=== PATIENT | female | born 1960 | race Caucasian/White ===

== ENCOUNTER 2021-05-08 09:30 | Emergency (ER) | payer OTHER, SELFPAY ==
--- NOTE | ~2021-05-08 | CT_ITS ---
EXAMINATION: CT ABDOMEN AND PELVIS WITH CONTRAST CLINICAL INFORMATION: Left lower quadrant pain COMPARISON: Previous CT scan most recent May 2019 TECHNIQUE: Multidetector volumetric images were obtained from the superior aspect of the liver through the pubic symphysis following administration 85 mL of Omnipaque 350 intravenous contrast. Sagittal and coronal reformatted images were obtained on the technologist's workstation. Oral contrast: Yes This CT examination was performed using dose optimization techniques as appropriate, variously including the following: *Automated exposure control *Adjustment of mA and/or kV according to patient size (this includes techniques or standardized protocols for targeted exams where dose is matched to indication/reason for exam; i.e. extremities or head) *Use of iterative reconstruction technique DLP: 619 mGy-cm FINDINGS: LUNG BASES: The visualized lung bases are unremarkable. LIVER, GALLBLADDER, AND BILIARY TREE: The liver is normal in size, shape, and attenuation. No focal hepatic lesion or biliary ductal dilatation is present. The gallbladder has been removed. PANCREAS: Unremarkable. SPLEEN: Unremarkable. ADRENAL GLANDS: Unremarkable. KIDNEYS AND URETERS: The kidneys are normal in size, shape, and attenuation. No hydronephrosis, hydroureter, or calculi seen. No perinephric stranding. BLADDER: Unremarkable. GASTROINTESTINAL TRACT: There is diverticulosis of the colon. There is wall thickening of the sigmoid colon and stranding of the fat suggestive of acute diverticulitis. There is evidence of constipation. No evidence of obstruction, perforation or abscess is seen. The appendix is not seen and may have been removed. The stomach is unremarkable. ABDOMINAL WALL: No significant hernia is appreciated. LYMPH NODES: Normal. VASCULAR: Unremarkable. PELVIC VISCERA: The uterus appears to have been removed. No pelvic mass is seen. OSSEOUS STRUCTURES: There is degenerative disc disease at L5-S1. CT/CT abdomen pelvis w con IMPRESSION: Sigmoid diverticulitis.
[2021-05-08 09:35] VITALS: BP 136/62; PULSE 96; RESP 16; TEMP 36.4; O2SAT 96; BMI 29.7
--- NOTE | 2021-05-08 09:55 | ED_ITS ---
HPI - Abdominal Pain General Chief Complaint: Abdominal Pain Stated Complaint: abd pain Time Seen by Provider: 05/08/21 09:53 History of Present Illness HPI narrative: Patient is 60 years old presents today with having abdominal pain. The abdominal pain is over the left lower quadrant. Been ongoing about 2 days. Associated with positive nausea no vomiting. No coughing or congestion or upper respiratory symptoms. Patient from home. No focal weakness. No chest pain. Patient from home. Previous history diverticulitis in the past. Patient on antibiotics. Related Data Previous Rx's Medication Instructions Recorded amoxicillin 875 mg-potassium 1 tab PO BID #20 tab 05/08/21 clavulanate 125 mg tablet (Augmentin) ibuprofen 400 mg tablet 400 mg PO Q6H PRN #20 tab 05/08/21 ondansetron 4 mg disintegrating 4 mg PO TID PRN 5 Days #10 tab 05/08/21 tablet Allergies Allergy/AdvReac Type Severity Reaction Status Date / Time No Known Allergies Allergy Verified 05/08/21 09:32 [No Known Allergies*] Review of Systems Review of Systems No fever chills positive abdominal pain Positive nausea All systems reviewed otherwise negative Yes all other systems are reviewed and are negative Physical Exam Vital Signs: Vital Signs: Last Vital Signs Temp 97.5 F 05/08/21 09:35 Pulse 96 05/08/21 09:35 Resp 16 05/08/21 09:35 BP 136/62 05/08/21 09:35 Pulse Ox 96 05/08/21 09:35 Body Mass Index 29.7 Appearance: Alert. Oriented X3. No acute distress. Eyes: Pupils equal, round and reactive to light. ENT: Pharynx normal. Neck: Normal inspection. Neck supple. No lymph nodes noted. No crepitus CVS: Normal heart rate and rhythm. Pulses normal. Normal S1 and S2 Respiratory: No respiratory distress. Breath sounds normal. No Wheezing. No rales Abdomen: Positive left lower quadrant tenderness no rebound guarding No rigidi ty. No distention. good BS x4 Skin: Skin warm and dry. Normal skin color. Normal skin turgor. Extremities: No lower extremity edema. Neurovascular intact to all extremities. No Lacerations. No Rash Neuro: Oriented X 3. No motor deficit. No sensory deficit. Moving all extermities. No slurred speech MDM - Abdominal Pain MDM Narrative Medical decision making narrative: CT positive for diverticulitis. There is no abscess no perforation. Will start patient on Rocephin and Flagyl. Will discha rge patient home on Augmentin. Patient is well appearing. In no distress. No kidney stone noted. Lab Data Attestation: I reviewed the patient's lab results. Result diagrams: 05/08/21 10:05/08/21 10:09 Labs: Lab Results 05/08/21 05/08/21 Range/Units 10: 10:09 WBC 11.6 H (4.8-10.8) X10*3/uL RBC 4.48 (4.20-5.50) X10*6/uL Hgb 12.8 (12.0-16.0) g/dl Hct 39.5 (37-47) % MCV 88.2 (80-98) fL MCH 28.6 (27.0-33.0) pg MCHC 32.4 (31.0-35.0) g/dl RDW 13.4 (11.0-16.0) % Plt Count 233 (160-400) X10*3/uL MPV 10.4 (9.4-12.3) fL Immature Gran % (Auto) 0.3 (0.0-0.4) % Neut % (Auto) 83.4 H (45-73) % Lymph % (Auto) 10.1 L (20-40) % [place] % (Auto) 5.7 (2-11) % Eos % (Auto) 0.3 (0-4) % Baso % (Auto) 0.2 (0-2) % Lymph # (Auto) 1.2 (1.2-4.9) X10*3/uL [place] # (Auto) 0.7 (0.1-1.2) X10*3/uL Eos # (Auto) 0.0 (0.0-0.4) X10*3/uL Baso # (Auto) 0.0 (0.0-0.2) X10*3/uL Abs Immat Gran (auto) 0.04 H (0.00-0.03) X10*3/uL Absolute Neuts (auto) 9.7 H (2.0-8.3) X10*3/uL Absolute Nucleated RBC 0.000 (0.0-0.012) X10*3/uL Nucleated RBC % (auto) 0.0 (0.0-0.2) /100WBC Sodium 138 (135-145) mmol/L Potassium 3.9 (3.3-5.1) mmol/L Chloride 105 (96-108) mmol/L Carbon Dioxide 24 (22-29) mmol/L Anion Gap 13 (12-20) BUN 12 (9-16) mg/dL Creatinine 0.93 (0.5-1.4) mg/dL Estim Creat Clear Calc 57.1 Estimated GFR > 60 Random Glucose 129 H (60-115) mg/dL Calcium 9.1 (8.4-10.2) mg/dL Total Bilirubin 0.4 (0.0-1.0) mg/dL AST 28 (5-31) U/L ALT 22 (0-31) U/L Alkaline Phosphatase 26 L (39-117) U/L Total Protein 6.2 L (6.5-8.0) g/dL Albumin 3.9 (3.5-5.0) g/dL Lipase 20 (8-78) U/L Discharge Plan Discharge Clinical Impression: Diverticulitis Patient Disposition: Home, Self-Care Instructions: Diverticulitis (ED) Prescriptions: New amoxicillin-pot clavulanate [Augmentin] 875-125 mg tablet 1 tab PO BID Qty: 20 RF: 0 ibuprofen 400 mg tablet 400 mg PO Q6H PRN (Reason: pain) Qty: 20 RF: 0 ondansetron 4 mg tablet,disintegrating 4 mg PO TID PRN (Reason: nausea and vomiting) 5 Days Qty: 10 RF: 0 Referrals: Evelyn Moreira MD [Physician] - 2 days [facility] Past Medical History Medical History (Updated 05/08/21 @ 12:08 by Nia Zavala MD) Diverticulitis Social History Social History Alcohol intake: never Patient Tobacco Use Status: Never used Tobacco Use of substances other than those prescribed or required for medical reasons: No Advance Directives: No Advance Directives Information Provided: No
[2021-05-08] MEDS: ondansetron HCL 4 MG/2 ML VIAL IVPUSH (10:18)
[2021-05-08] MEDS: HYDROmorphone HCl 0.5 MG/0.5 ML SYRINGE IVPUSH (10:19)
[2021-05-08 10:20] LABS: MANUAL DIFF FLAG NO
[2021-05-08] MEDS: 0.9 % Sodium Chloride 1,000 ML 999 ML IV (10:20)
[2021-05-08 10:21] LABS: Basophils Percent Auto 0.2 % (0-2); Eosinophils Percent Auto 0.3 % (0-4); Hematocrit 39.5 % (37-47); Hemoglobin 12.8 g/dl (12.0-16.0); Imm Gran Abs Auto 0.04 X10*3/uL (0.00-0.03); Imm Gran Pct Auto 0.3 % (0.0-0.4); Lymphocytes Absolute Auto 1.2 X10*3/uL (1.2-4.9); Lymphocytes Percent Auto 10.1 % (20-40); Mean Corpuscular HGB Conc 32.4 g/dl (31.0-35.0); Mean Corpuscular Hemoglobin 28.6 pg (27.0-33.0); Mean Corpuscular Volume 88.2 fL (80-98); Mean Platelet Volume 10.4 fL (9.4-12.3); Monocytes Absolute Auto 0.7 X10*3/uL (0.1-1.2); Monocytes Percent Auto 5.7 % (2-11); Neutrophils Absolute Auto 9.7 X10*3/uL (2.0-8.3); Neutrophils Percent Auto 83.4 % (45-73); Platelet Count 233 X10*3/uL (160-400); Red Blood Count 4.48 X10*6/uL (4.20-5.50); Red Cell Distribution Width 13.4 % (11.0-16.0); White Blood Count 11.6 X10*3/uL (4.8-10.8)
[2021-05-08 11:15] LABS: Alanine Aminotransferase 22 U/L (0-31); Albumin Level 3.9 g/dL (3.5-5.0); Alkaline Phosphatase 26 U/L (39-117); Anion Gap 13 (12-20); Aspartate Amino Transferase 28 U/L (5-31); Bilirubin Total 0.4 mg/dL (0.0-1.0); Blood Urea Nitrogen 12 mg/dL (9-16); Calcium 9.1 mg/dL (8.4-10.2); Carbon Dioxide 24 mmol/L (22-29); Chloride 105 mmol/L (96-108); Creatinine Clr Calc Pharmacy 57.1; Estimated Glomerular Filt Rate > 60; Glucose Random 129 mg/dL (60-115); Lipase 20 U/L (8-78); Potassium 3.9 mmol/L (3.3-5.1); Sodium 138 mmol/L (135-145); Total Protein 6.2 g/dL (6.5-8.0)
[2021-05-08] MEDS: iohexoL 350 MG/ML 100 ML INFUS..BTL 85 ML IV (11:44)
[2021-05-08] MEDS: cefTRIAXone sodium 1 GM in 0.9 % Sodium Chloride 50 ML IV (12:25)
[2021-05-08 12:27] VITALS: BP 103/52; PULSE 72; RESP 18; O2SAT 98
[2021-05-08] MEDS: metroNIDAZOLE 500 MG TABLET PO (12:27)
== END 2021-05-08 12:47 | disposition home or self-care (01) ==
PROVIDERS: Emergency Provider Emergency Medicine Emergency Medical Services; PCP Internal Medicine
DX: K57.32 Diverticulitis of large intestine without perforation or abscess without bleeding (principal); R10.9 Unspecified abdominal pain; Z79.899 Other long term (current) drug therapy
CPT/HCPCS: 36415; 74177; 80053; 83690; 85025; 96361; 96365; 96375; 99284; J0696; J1170; J2405; Q9967

== ENCOUNTER 2023-04-21 19:55 | Emergency (ER) | payer OTHER, SELFPAY ==
--- NOTE | ~2023-04-21 | XR_ITS ---
EXAMINATION: XR LUMBOSACRAL SPINE CLINICAL INFORMATION: Low back pain COMPARISON: Sagittal images from CT dated 05/08/2021 TECHNIQUE: Three views of the lumbosacral spine. FINDINGS: There is grade 1 anterolisthesis of L4 and L5. This may well be degenerative in nature. Sclerotic changes in the in the posterior elements at L4-L5 and L5-S1 are noted. Loss of disc height at L5-S1 greater than of the levels consistent with degenerative change. No compression injury is seen. XR/XR lumbar spine 2-3V IMPRESSION: Mild grade 1 anterolisthesis of L4 and L5 is likely due to degeneration in the posterior elements as described. Degenerative changes are otherwise noted. No acute compression injury. No fracture is seen
[2023-04-21 20:20] VITALS: BP 118/51; PULSE 77; RESP 18; TEMP 36.9; O2SAT 98; BMI 33.8
--- NOTE | 2023-04-21 20:21 | ED_ITS ---
HPI - General Adult General Chief complaint: Back Pain/Injury Stated complaint: back pain, no injury Time Seen by Provider: 04/22/23 00:57 Source: patient, family () and RN notes reviewed Mode of arrival: ambulatory Limitations: no limitations History of Present Illness HPI narrative: 62-year-old female presents for evaluation of left lower back pain. Patient reports her symptoms started 4 days ago. She states this started after ?sleeping on it the wrong way. ? Denies any trauma. Denies any radiation rib pain. Denies any numbness, tingling No bladder or bowel incontinence, no lower extremity weakness. Denies any history of similar Her pain is a 7/10 worse with ambulation Related Data Previous Rx's Medication Instructions Recorded amoxicillin 875 mg-potassium 1 tab PO BID #20 tabs 05/08/21 clavulanate 125 mg tablet (Augmentin) ibuprofen 400 mg tablet 400 mg PO Q6H PRN pain #20 tabs 05/08/21 ondansetron 4 mg disintegrating 4 mg PO TID PRN nausea and 05/08/21 tablet vomiting 5 days #10 tabs methocarbamol 500 mg tablet 500 mg PO TID PRN muscle spasm #15 04/22/23 tabs Allergies Allergy/AdvReac Type Severity Reaction Status Date / Time No Known Allergies Allergy Verified 04/21/23 20:20 [No Known Allergies*] Review of Systems Constitutional: Constitutional: Denies chills, Denies fever(s) and Denies weakness Eyes: Eyes: Denies blurry vision ENT: Denies sore throat Cardiovascular: Cardiovascular: Denies chest pain and Denies dyspnea Respiratory: Respiratory: Denies cough and Denies dyspnea Gastrointestinal: Gastrointestinal: Denies abdominal pain, Denies nausea and Denies vomiting Genitourinary: Genitourinary: Denies urinary incontinence and Denies urinary hesitancy Musculoskeletal: Musculoskeletal: Reports back pain and Denies tingling Integumentary/Breasts: Skin/Breast: Denies rash Neurologic: Denies tingling, Denies paresthesias and Denies weakness [facility], [facility] Past Medical History Medical History (Updated 04/22/23 @ 01:04 by Felix West) Diverticulitis Social History Social History Alcohol intake: never Patient Tobacco Use Status: Never used Tobacco Advance Directives: No Advance Directives Information Provided: Yes Physical Exam ED Vital Signs: Vital Signs - 24 hr 04/21/23 20:20 Temperature 98.4 F Pulse Rate 77 Respiratory Rate 18 Blood Pressure 118/51 L Pulse Oximetry 98 Oxygen Delivery Method Room Air BMI result Body Mass Index 33.8 Const General: healthy appearing, comfortable, no acute distress, alert and awake Nutritional Appearance: well nourished Orientation/consciousness: patient oriented x3 HENMT Head: Yes normocephalic and Yes atraumatic Eyes Eyelids: Yes eyelids normal Conjunctivae: conjunctivae normal Sclerae: sclerae normal Corneas: corneas normal Pupils: Equal, round and reactive pupils present EOM: EOMs intact bilaterally Neck Neck: Yes full ROM Resp Effort & Inspection: normal respiratory effort, able to speak in complete sentences and not labored GI Inspection: No distended Palpation (GI): Soft to palpation, not firm, nontender, no guarding and not rigid Back/Spine/Pelvis Other: Patient has tenderness in the left lumbar sacral region. No vertebral tenderness. No step-offs or deformities. Straight leg raise negative bilaterally Skin General skin exam: elasticity normal Neuro General: patient oriented x3 Cranial nerves: Yes Equal, round and reactive pupils present and Yes Bilaterally intact EOM present Cognition (Neuro): normal cognition Extrem Other: Moving all extremities well without any obvious deformities Course Course Course Narrative: This is an RME: Additional HPI, ROS, PE not included below will be deferred to primary provider. 62-year-old female presents with left lower back pain for the past 3-4 days worsening. Atraumatic in nature. No red flag symptoms. No fevers or chills. Has never had imaging of her back Plan xray, pain med Medications Administered Discontinued Medications Generic Name Dose Route Start Last Admin Trade Name Kartikq PRN Reason Stop Dose Admin Acetaminophen 650 mg 04/21/23 20:21 04/21/23 20:24 Acetaminophen 325 Mg Tablet PO 04/21/23 20:22 650 mg ONCE ONE Administration Medical Decision Making Medical Decision Making MDM Narrative: 62-year-old female presents for evaluation of lower back pain, atraumatic. History and exam does not have any red flags for cauda equina syndrome. She has no fever or reported IV drug abuse to suggest infectious process. Will treat as simple radiculopathy. X-ray shows mild degenerative changes. Differential Diagnosis Differential Diagnoses: The differential diagnosis associated with the presentation includes Lower back pain Sciatica Muscle strain Lumbar radiculopathy Osteoarthritis Lab Data [facility] Lab Attestation statement: I reviewed the patient's lab results. No evidence of UTI Labs: Lab Results 04/21/23 Range/Units 20:37 Urine Color Yellow Urine Appearance Clear Urine pH 7.5 (5.0-9.0) Ur Specific [place] <= 1.005 (1.005-1.025) Urine Protein Negative (Neg-Trace) mg/dL Urine Glucose (UA) Negative (Negative) mg/dL Urine Ketones Negative (Negative) mg/dL Urine Blood Negative (Negative) Urine Nitrite Negative (Negative) Ur Leukocyte Esterase Trace H (Negative) Urine RBC 0-2 (0-2) /HPF Urine WBC 0-5 (0-5) /HPF Ur Squamous Epith Cells 0-2 (0-2) /HPF Urine Bacteria None Seen (None Seen) Hyaline Casts 0-2 (0-2) /LPF Independent Interpretation I performed an independent interpretation of an: Plain X-Ray (No obvious fracture) Radiology Impression Discussion of test interpretation with radiology: I have reviewed the radiologist's reading. Radiologist Impression: Mild grade 1 anterior listhesis of L4 and L5 is likely due to degeneration in posterior elements as described Discharge Plan Discharge Clinical Impression: Lumbar radiculopathy Patient Disposition: Home, Self-Care Instructions: Acute Low Back Pain (ED) Additional Instructions: Your x-ray showed mild degenerative changes but no obvious fracture Your urine did not show any blood or signs of infection Use ibuprofen/Tylenol for pain You may use methocarbamol as needed for muscle spasms. This may make you sleepy, do not drink alcohol or drive after taking Prescriptions: New methocarbamol 500 mg tablet 500 mg PO TID PRN (Reason: muscle spasm) Qty: 15 0RF No Action amoxicillin-pot clavulanate [Augmentin] 875-125 mg tablet 1 tab PO BID Qty: 20 0RF ibuprofen 400 mg tablet 400 mg PO Q6H PRN (Reason: pain) Qty: 20 0RF ondansetron 4 mg tablet,disintegrating 4 mg PO TID PRN (Reason: nausea and vomiting) 5 Days Qty: 10 0RF
[2023-04-21] MEDS: Acetaminophen 325 MG TABLET 650 MG PO (20:24)
[2023-04-21 20:45] LABS: Appearance Urine Clear; Color Urine Yellow; Glucose Urine UA Negative (Negative); Leukocyte Esterase Urine Trace (Negative); Nitrite Urine Negative (Negative); PH 7.5 (5.0-9.0); Specific Gravity - Urine <= 1.005 (1.005-1.025); UMIC TRIGGER UACC YES; Urine Blood Negative (Negative); Urine Ketones Negative (Negative); Urine Protein Negative (Neg-Trace)
[2023-04-21 20:48] LABS: Bacteria Urine None Seen (None Seen); Hyaline Casts Urine 0-2 /LPF (0-2); RBC Urine 0-2 /HPF (0-2); Squamous Epithelial Cell Urine 0-2 /HPF (0-2); WBC Urine 0-5 /HPF (0-5)
[2023-04-22] MEDS: Lidocaine 4 % Patch ADH..PATCH 1 PATCH TRANSDERMA (01:31)
[2023-04-22] MEDS: Ketorolac Tromethamine 30 MG/ML VIAL IM (01:31)
[2023-04-22] MEDS: Cyclobenzaprine HCl 10 MG TABLET PO (01:31)
== END 2023-04-22 01:38 | disposition home or self-care (01) ==
PROVIDERS: Physician Assistant; Emergency Provider Internal Medicine; PCP Internal Medicine
DX: M54.16 Radiculopathy, lumbar region (principal); M54.50 Low back pain, unspecified
CPT/HCPCS: 72100; 81001; 96372; 99283; 99284; J1885

== ENCOUNTER 2024-07-11 21:34 | Inpatient (IN) | payer OTHER, SELFPAY ==
--- NOTE | ~2024-07-11 | CT_ITS ---
EXAMINATION: CT ABDOMEN AND PELVIS WITH CONTRAST CLINICAL INFORMATION: LIQ [sic] pain COMPARISON: CT abdomen and pelvis 05/08/2021. TECHNIQUE: Multidetector volumetric images were obtained from the superior aspect of the liver through the pubic symphysis following administration 85 mL of Omnipaque 350 intravenous contrast. Sagittal and coronal reformatted images were obtained on the technologist's workstation. Oral contrast: No This CT examination was performed using dose optimization techniques as appropriate, variously including the following: *Automated exposure control *Adjustment of mA and/or kV according to patient size (this includes techniques or standardized protocols for targeted exams where dose is matched to indication/reason for exam; i.e. extremities or head) *Use of iterative reconstruction technique DLP: 636 mGy-cm FINDINGS: LUNG BASES: The visualized lung bases are unremarkable. LIVER, GALLBLADDER, AND BILIARY TREE: The liver is normal in size, shape, and attenuation. No focal hepatic lesion or biliary ductal dilatation is present. Cholecystectomy clips noted. PANCREAS: Unremarkable. SPLEEN: Unremarkable. ADRENAL GLANDS: Unremarkable. KIDNEYS AND URETERS: Mild ectasia of the left ureter is present and may represent physiologic peristalsis of the left ureter. BLADDER: Unremarkable. GASTROINTESTINAL TRACT: Marked sigmoid diverticulosis is present. Focal reticulation of the sigmoid mesenteric fat is present in the middle segment of the sigmoid colon trace fluid is present adjacent to the sigmoid colon in this region. No free intraperitoneal gas identified. Fluid demonstrates a curvilinear configuration is suspicious for reactive fluid. Appendix is not visualized. No pericecal inflammatory changes noted. No small bowel dilatation noted. Normal appearance of the stomach and duodenum. ABDOMINAL WALL: No significant hernia is appreciated. LYMPH NODES: Normal. VASCULAR: Moderate diffuse calcific atherosclerosis PELVIC VISCERA: The uterus is absent. No adnexal lesions noted. OSSEOUS STRUCTURES: No suspicious skeletal lesions. Marked intervertebral disc space narrowing and endplate osteophytosis L5-S1. CT/CT abdomen pelvis w IV con IMPRESSION: *Acute uncomplicated diverticulitis of the middle segment of the sigmoid colon. Marked sigmoid diverticulosis is present. Mild to moderate focal inflammatory changes are present in the middle segment of the sigmoid colon and minimal adjacent trace reactive appearing free intraperitoneal fluid is noted. No free intraperitoneal gas identified. Electronically signed by: Facundo Bowens MD 07/12/2024 02:48 AM EST
[2024-07-11 21:38] VITALS: BP 112/31; BP 130/70; PULSE 91; PULSE 98; RESP 18; TEMP 36.6; O2SAT 97; O2SAT 98; BMI 28.5
[2024-07-11 22:04] LABS: MANUAL DIFF FLAG NO
[2024-07-11 22:05] LABS: Basophils Percent Auto 0.3 % (0-2); Eosinophils Absolute Auto 0.1 X10*3/uL (0.0-0.4); Eosinophils Percent Auto 0.4 % (0-4); Hematocrit 40.1 % (37.0-47.0); Hemoglobin 13.5 g/dl (12.0-16.0); Imm Gran Abs Auto 0.07 X10*3/uL (0.00-0.03); Imm Gran Pct Auto 0.5 % (0.0-0.4); Lymphocytes Absolute Auto 1.7 X10*3/uL (1.2-4.9); Lymphocytes Percent Auto 13.1 % (20-40); Mean Corpuscular HGB Conc 33.7 g/dl (31.0-35.0); Mean Corpuscular Hemoglobin 28.9 pg (27.0-33.0); Mean Corpuscular Volume 85.9 fL (80.0-98.0); Monocytes Absolute Auto 0.8 X10*3/uL (0.1-1.2); Neutrophils Absolute Auto 10.4 x10*3/uL (2.0-8.3); Neutrophils Percent Auto 79.7 % (45-73); Platelet Count 223 X10*3/uL (160-400); Red Blood Count 4.67 X10*6/uL (4.20-5.50); Red Cell Distribution Width 13.5 % (11.0-16.0)
[2024-07-11 22:22] LABS: Alanine Aminotransferase 36 U/L (0-31); Alkaline Phosphatase 32 U/L (39-117); Anion Gap 13 (12-20); Aspartate Amino Transferase 40 U/L (5-31); Bilirubin Total 0.5 mg/dL (0.0-1.0); Blood Urea Nitrogen 18 mg/dL (9-16); C Reactive Protein 7.58 mg/dL (< or = 0.50); Calcium 9.4 mg/dL (8.4-10.2); Carbon Dioxide 22 mmol/L (22-29); Chloride 108 mmol/L (96-108); Creatinine Clr Calc Pharmacy 70.7; Estimated Glomerular Filt Rate > 60; Glucose Random 113 mg/dL (60-115); Lipase 17 U/L (8-78); Potassium 3.9 mmol/L (3.3-5.1); Sodium 139 mmol/L (135-145); Total Protein 6.7 g/dL (6.5-8.0)
[2024-07-11 23:48] VITALS: BP 125/50; PULSE 88; RESP 18; TEMP 38.7; O2SAT 98
--- NOTE | 2024-07-11 23:53 | MHC.EDTECH ---
at this time this tech brought the pt back from the waiting room into her room in the main ED, when grabbing pt she appeared very weak and this tech offered her a wheelchair, pt denied the need then started to lose her balance and experienced a slight syncope episode, was able to hold her while this tech grabbed a wheelchair to ambulate pt. Pt changed over into hospital gown and placed on cardiac cath technician r/t syncope episode, VS taken, all wnl except temp that read 101.6 and a low BP of 115/49, checked again prior to leaving room and it read 125/50. RN notified.
[2024-07-12] VITALS (7 sets, daily range): BP systolic 92–121; BP diastolic 36–58; PULSE 64–77; RESP 12–20; TEMP 36.4–37.2; O2SAT 95–98
--- NOTE | 2024-07-12 00:13 | PC.NURSE ---
provider Ted is aware of pt temp 101.6 and bp 115/49 125/50. pt was feeling weak when getting up from the waiting room due to pain 04/09.
--- NOTE | 2024-07-12 00:20 | ED_ITS ---
HPI - General Adult General Chief complaint: Abdominal Pain Stated complaint: abd pain Time Seen by Provider: 07/11/24 23:52 Source: patient Mode of arrival: ambulatory Limitations: no limitations History of Present Illness ED Provider: Ted Heard HPI narrative: 63 yold female with pmh of diverticulitits presents to the ED LLQ pain with nausea with decrease PO intake. Patient is usually get diverticulitis flare-up every 9 months. Patient denies any genitourinary symptoms Related Data Previous Rx's ?Medication ?Instructions ?Recorded amoxicillin 875 mg-potassium 1 tab PO BID #20 tabs 05/08/21 clavulanate 125 mg tablet (Augmentin) ibuprofen 400 mg tablet 400 mg PO Q6H PRN pain #20 tabs 05/08/21 ondansetron 4 mg disintegrating 4 mg PO TID PRN nausea and 05/08/21 tablet vomiting 5 days #10 tabs methocarbamol 500 mg tablet 500 mg PO TID PRN muscle spasm #15 04/22/23 tabs Allergies Allergy/AdvReac Type Severity Reaction Status Date / Time No Known Allergies Allergy Verified 07/11/24 21:41 [No Known Allergies*] Review of Systems 2 Review of Systems: Left lower quadrant tenderness on palpation Yes all other systems are reviewed and are negative [facility] Past Medical History Medical History (Updated 07/12/24 @ 03:03 by EMY Mtz) Diverticulitis Social History Social History Alcohol intake: never Patient Tobacco Use Status: Never used Tobacco Smoked in Last 30 Days: No Use of substances other than those prescribed or required for medical reasons: No Advance Directives: No Advance Directives Information Provided: No Patient : No Physical Exam ED Vital Signs: Vital Signs - 24 hr 07/11/24 21:38 07/11/24 23:48 07/12/24 00:53 Temperature 97.9 F 101.6 F H Pulse Rate 91 88 Respiratory Rate 18 18 18 Blood Pressure 112/31 L 125/50 L Pulse Oximetry 97 98 Oxygen Delivery Method Room Air Room Air 07/12/24 01:44 07/12/24 02:00 Temperature 99.0 F 97.6 F Pulse Rate 76 64 Respiratory Rate 16 16 Blood Pressure 110/42 L 100/36 L Pulse Oximetry 97 Oxygen Delivery Method Room Air BMI result Body Mass Index 28.5 Const General: cooperative, healthy appearing, comfortable, no acute distress, well developed, alert, awake and Physically active Orientation/consciousness: patient oriented x3 HENMO Head: Yes normal to inspection, Yes No palpable skull fracture present, Yes normocephalic and Yes atraumatic Eyes General: appearance normal, both eyes and all related structures Neck Neck: Yes normal visual inspection, Yes full ROM, Yes no lymphadenopathy, Yes no meningeal signs, Yes trachea midline, No anterior neck swelling and No tender Chest Chest palpation & inspection: normal inspection of the chest and normal palpation of entire chest wall Resp Effort & Inspection: normal respiratory effort and able to speak in complete sentences Auscultation: clear to auscultation bilaterally Cardio Jugular venous distension: no JVD Heart sounds: S1 normal heart sound present and S2 normal heart sound present GI Inspection: Yes normal to inspection Palpation (GI): Soft to palpation, not firm, nontender, no guarding and not rigid General: Yes no CVA tenderness Back/Spine/Pelvis Back: no CVA tenderness and No back tenderness Skin General skin exam: no rashes or lesions noted, elasticity normal and turgor normal Neuro General: patient oriented x3, gait normal, tone normal, moves all extremities, Normal light touch and pain sensation, no meningeal signs, no focal motor deficits, CN's II-XI intact bilaterally and normal sensation to monofilament Extrem General: Yes normal to inspection, Yes full ROM and Yes capillary refill normal Psych Appearance: grossly normal, well kempt and not disheveled Medications Administered Discontinued Medications Generic Name Dose Route Start Last Admin Trade Name Freq PRN Reason Stop Dose Admin Acetaminophen 975 mg 07/12/24 00:17 07/12/24 00:53 Acetaminophen 325 Mg Tablet PO 07/12/24 00:18 975 mg ONCE ONE Administration Sodium Chloride 1,000 mls @ 999 mls/hr 07/12/24 00:17 07/12/24 00:53 Ns IV 07/12/24 01:17 999 mls/hr .Q1H1M STA Administration Iohexol 85 ml 07/12/24 00:42 07/12/24 00:42 Iohexol 350 Mg/Ml 100 Ml Infus..Btl IV 07/12/24 00:43 85 ml ONCE ONE Administration Morphine Sulfate 4 mg 07/12/24 00:27 07/12/24 00:53 Morphine Sulfate 4 Mg/Ml Cartridge IVPUSH 07/12/24 00:28 4 mg ONCE ONE Administration Protocol Medical Decision Making Medical Decision Making [facility] Narrative: 63-year-old female presents to ED for left lower quadrant tenderness with history of diverticulitis. Patient is febrile. Fluids ordered 3:01pm: Patient is accepted by hospitalist for admission for diverticulitis. Patient already received Zosyn given morphine for pain. Patient had elevated white blood cell count. Differential Diagnosis Differential Diagnoses: The differential diagnosis associated with the presentation includes (Diverticulitis) Admission/Observation Consideration of admission/observation: Escalation of care including admission/observation considered Consult Healthcare Provider Management of the patient was discussed with: Real Estate Lawyer (Dr. Leone) Lab Data [facility] Lab Attestation statement: I reviewed the patient's lab results. 07/11/24 22:00 07/11/24 22:00 Labs: Lab Results 07/11/24 07/12/24 07/12/24 Range/Units 22:00 00:06 00:23 WBC 13.0 H (4.8-10.8) X10*3/uL RBC 4.67 (4.20-5.50) X10*6/uL Hgb 13.5 (12.0-16.0) g/dl Hct 40.1 (37.0-47.0) % MCV 85.9 (80.0-98.0) fL MCH 28.9 (27.0-33.0) pg MCHC 33.7 (31.0-35.0) g/dl RDW 13.5 (11.0-16.0) % Plt Count 223 (160-400) X10*3/uL MPV 10.0 (9.4-12.3) fL Immature Gran % (Auto) 0.5 H (0.0-0.4) % Neut % (Auto) 79.7 H (45-73) % Lymph % (Auto) 13.1 L (20-40) % [place] % (Auto) 6.0 (2-11) % Eos % (Auto) 0.4 (0-4) % Baso % (Auto) 0.3 (0-2) % Lymph # (Auto) 1.7 (1.2-4.9) X10*3/uL [place] # (Auto) 0.8 (0.1-1.2) X10*3/uL Eos # (Auto) 0.1 (0.0-0.4) X10*3/uL Baso # (Auto) 0.0 (0.0-0.2) X10*3/uL Abs Immat Gran (auto) 0.07 H (0.00-0.03) X10*3/uL Absolute Neuts (auto) 10.4 H (2.0-8.3) x10*3/uL Absolute Nucleated RBC 0.000 (0.0-0.012) X10*3/uL Nucleated RBC % (auto) 0.0 (0.0-0.2) /100WBC Sodium 139 (135-145) mmol/L Potassium 3.9 (3.3-5.1) mmol/L Chloride 108 (96-108) mmol/L Carbon Dioxide 22 (22-29) mmol/L Anion Gap 13 (12-20) BUN 18 H (9-16) mg/dL Creatinine 0.83 (0.5-1.4) mg/dL Estim Creat Clear Calc 70.7 Estimated GFR > 60 Random Glucose 113 (60-115) mg/dL Lactic Acid 1.3 (0.5-2.0) mmol/L Calcium 9.4 (8.4-10.2) mg/dL Magnesium 2.0 (1.6-2.6) mg/dL Total Bilirubin 0.5 (0.0-1.0) mg/dL AST 40 H (5-31) U/L ALT 36 H (0-31) U/L Alkaline Phosphatase 32 L (39-117) U/L C-Reactive Protein 7.58 H (< or = 0.50) mg/dL Total Protein 6.7 (6.5-8.0) g/dL Albumin 4.0 (3.5-5.0) g/dL Lipase 17 (8-78) U/L Urine Color Yellow Urine Appearance Cloudy Urine pH 6.0 (5.0-9.0) Ur Specific [place] 1.020 (1.005-1.025) Urine Protein Negative (Neg-Trace) mg/dL Urine Glucose (UA) Negative (Negative) mg/dL Urine Ketones Trace (Negative) mg/dL Urine Blood Negative (Negative) Urine Nitrite Negative (Negative) Ur Leukocyte Esterase Trace H (Negative) Urine RBC 0-2 (0-2) /HPF Urine WBC 6-10 H (0-5) /HPF Ur Squamous Epith Cells 3-5 (0-2) /HPF Urine Bacteria None Seen (None Seen) Hyaline Casts 0-2 (0-2) /LPF Independent Interpretation I performed an independent interpretation of an: CT Scan Radiology Impression Discussion of test interpretation with radiology: I have reviewed the radiologist's reading. Independent Historian Clinical information obtained from an independent historian. History obtained from or confirmed by: Other (patient) External Record Review External record reviewed: Other (prior viistst) Discharge Plan Discharge Clinical Impression: Diverticulitis Patient Disposition: Admitted As Inpatient Print Language: Afghan
[2024-07-12 00:33] LABS: Appearance Urine Cloudy; Color Urine Yellow; Glucose Urine UA Negative (Negative); Leukocyte Esterase Urine Trace (Negative); Nitrite Urine Negative (Negative); UMIC TRIGGER UACC YES; Urine Blood Negative (Negative); Urine Ketones Trace mg/dL (Negative); Urine Protein Negative (Neg-Trace)
[2024-07-12 00:38] LABS: Bacteria Urine None Seen (None Seen); Hyaline Casts Urine 0-2 /LPF (0-2); RBC Urine 0-2 /HPF (0-2); UACC Culture Trigger YES
--- NOTE | 2024-07-12 00:40 | PC.NURSE ---
pt in ct at this time.
[2024-07-12] MEDS: iohexoL 350 MG/ML 100 ML INFUS..BTL 85 ML IV (00:42)
[2024-07-12 00:45] LABS: Lactic Acid 1.3 mmol/L (0.5-2.0)
[2024-07-12] MEDS: 0.9 % Sodium Chloride 1,000 ML 999 ML IV (00:53)
[2024-07-12] MEDS: Morphine Sulfate 4 MG/ML CARTRIDGE IVPUSH (00:53)
[2024-07-12] MEDS: Acetaminophen 325 MG TABLET 975 MG PO (00:53)
--- NOTE | 2024-07-12 03:44 | P.HPHOSP_ITS ---
History of Present Illness Date of Service: 07/12/24 Attending physician on admission: Lilia Cadena Chief Complaint: Abdominal pain Mireya Vásquez is a 63 years old woman with past medical history significant for prior episode of diverticulitis presents to the emergency department complaining of left lower quadrant pain that started about 4 days ago associated with nausea. She denied events of diarrhea, constipation or vomiting. She also reports some headache and subjective fever. Denied any acute cardiopulmonary or genitourinary symptoms. Last episode of diverticulitis was about 9 months ago. She has seen surgery in the past for this. Did not report alcohol abuse, tobacco smoking or illicit drug use. Past medical history is significant for cholecystectomy. In the ED she was found to have fever of 101.6. Other vital signs are stable. Blood workup was remarkable for leukocytosis of 13.0. There is no lactic acidosis. CRP is elevated at 7.58. Hemoglobin and platelets are normal. Electrolytes are normal. Creatinine 0.83 and BUN 18. Transaminases are elevated. Bilirubin, lipase and alk-phos are unremarkable. Abdomen pelvis CT scan with IV contrast showed acute uncomplicated diverticulitis of the medial segment of the sigmoid colon. ED tx: NS 1 L bolus, acetaminophen 975 mg p.o., Zosyn 3.375 g IV Review of Systems 2 Review of Systems: All 12 systems were reviewed and normal except as noted in HPI. [facility] Medical History (Updated 07/12/24 @ 03:58 by Lilia Cadena MD) Diverticulitis Social History Alcohol intake: never Patient Tobacco Use Status: Never used Tobacco Smoked in Last 30 Days: No Use of substances other than those prescribed or required for medical reasons: No Advance Directives: No Advance Directives Information Provided: No Patient : No Meds Allergies Allergy/AdvReac Type Severity Reaction Status Date / Time No Known Allergies Allergy Verified 07/11/24 21:41 [No Known Allergies*] Physical Exam 2 Vital Signs and Narrative: Vital Signs: Last Vital Signs Temp 97.6 F 07/12/24 02:00 Pulse 64 07/12/24 02:00 Resp 16 07/12/24 02:00 BP 100/36 L 07/12/24 02:00 Pulse Ox 97 07/12/24 02:00 O2 Del Method Room Air 07/12/24 02:00 BMI result Body Mass Index 28.5 Constitutional - Awake and Alert, No apparent distress. Acutely ill. Pleasant. Cooperative. HEENT - PER, EOMI. Dry oral mucosa. Heart - S1S2, RRR, No murmurs Lungs - Normal lung expansion, Normal respiratory effort, No respiratory distress, CTA bilaterally Abdomen - ND; +BS; left lower quadrant tenderness with guarding but no rebound. - No CVA tenderness Extremities - no calf tenderness bilaterally, no swelling Musculoskeletal - Normal inspection, normal ROM Skin - Warm/Dry Neurological - Alert & oriented x3. No focal weakness grossly noted. Normal speech. Psychological - Appropriate affect Results Labs 07/11/24 22:00 07/11/24 22:00 Labs: Laboratory Results - last 24 hr 07/11/24 07/12/24 07/12/24 22:00 00:06 00:23 MCV 85.9 MCH 28.9 MCHC 33.7 RDW 13.5 Plt Count 223 MPV 10.0 Immature Gran % (Auto) 0.5 H Neut % (Auto) 79.7 H Lymph % (Auto) 13.1 L [place] % (Auto) 6.0 Eos % (Auto) 0.4 Baso % (Auto) 0.3 Lymph # (Auto) 1.7 [place] # (Auto) 0.8 Eos # (Auto) 0.1 Baso # (Auto) 0.0 Abs Immat Gran (auto) 0.07 H Absolute Neuts (auto) 10.4 H Absolute Nucleated RBC 0.000 Nucleated RBC % (auto) 0.0 Anion Gap 13 Estim Creat Clear Calc 70.7 Estimated GFR > 60 Random Glucose 113 Lactic Acid 1.3 Calcium 9.4 Magnesium 2.0 Total Bilirubin 0.5 AST 40 H ALT 36 H Alkaline Phosphatase 32 L C-Reactive Protein 7.58 H Total Protein 6.7 Albumin 4.0 Lipase 17 Urine Color Yellow Urine Appearance Cloudy Urine pH 6.0 Ur Specific [place] 1.020 Urine Protein Negative Urine Glucose (UA) Negative Urine Ketones Trace Urine Blood Negative Urine Nitrite Negative Ur Leukocyte Esterase Trace H Urine RBC 0-2 Urine WBC 6-10 H Ur Squamous Epith Cells 3-5 Urine Bacteria None Seen Hyaline Casts 0-2 Assessment and Plan (1) Transaminitis: Status: Acute (2) Diverticulitis: Status: Acute Plan Mireya Vásquez is a 63 y/o woman admitted with: * Acute diverticulitis + SIRS criteria, no severe sepsis. Admit to hospitalist service. Advance diet as tolerated. Continue empiric IV antibiotic therapy with Zosyn. IV fluids. Recheck labs in the morning. Blood culture obtained -will follow results. * ?UTI. No symptoms. On Zosyn. Check urine culture. * Mild elevation of transaminases; cause unclear. Abdomen pelvis CT scan showed normal liver. Continue to monitor for now. DVT prophylaxis: Lovenox Code status: Full Patient will need hospitalization for at least 2 midnights for acute diverticulitis + SIRS criteria treatment with IV antibiotic. Quality Stroke Does the patient have a stroke diagnosis?: No VTE Prior VTE?: No VTE Risk Level:: Medical - moderate - high VTE Device Contraindication: Treatment Not Indicated VTE Drug Contraindication: N/A - Med Ordered
[2024-07-12] MEDS: Piperacillin Sodium/Tazobactam 3.375 GM in 0.9 % Sodium Chloride 50 ML IV ×4 (04:51→21:11)
[2024-07-12] MEDS: Lactated Ringers 1,000 ML 100 ML IVCONT (04:53)
[2024-07-12 06:56] LABS: MANUAL DIFF FLAG NO
[2024-07-12 06:59] LABS: Basophils Percent Auto 0.2 % (0-2); Eosinophils Percent Auto 0.3 % (0-4); Hematocrit 35.6 % (37.0-47.0); Hemoglobin 11.9 g/dl (12.0-16.0); Imm Gran Abs Auto 0.04 X10*3/uL (0.00-0.03); Imm Gran Pct Auto 0.3 % (0.0-0.4); Lymphocytes Absolute Auto 2.3 X10*3/uL (1.2-4.9); Lymphocytes Percent Auto 19.6 % (20-40); Mean Corpuscular HGB Conc 33.4 g/dl (31.0-35.0); Mean Corpuscular Hemoglobin 28.7 pg (27.0-33.0); Mean Corpuscular Volume 85.8 fL (80.0-98.0); Mean Platelet Volume 10.1 fL (9.4-12.3); Monocytes Absolute Auto 0.9 X10*3/uL (0.1-1.2); Monocytes Percent Auto 7.7 % (2-11); Neutrophils Absolute Auto 8.4 x10*3/uL (2.0-8.3); Neutrophils Percent Auto 71.9 % (45-73); Platelet Count 205 X10*3/uL (160-400); Red Blood Count 4.15 X10*6/uL (4.20-5.50); Red Cell Distribution Width 13.4 % (11.0-16.0); White Blood Count 11.6 X10*3/uL (4.8-10.8)
[2024-07-12 07:13] LABS: Albumin Level 3.4 g/dL (3.5-5.0); Anion Gap 9 (12-20); Bilirubin Total 0.6 mg/dL (0.0-1.0); Blood Urea Nitrogen 12 mg/dL (9-16); Calcium 8.5 mg/dL (8.4-10.2); Carbon Dioxide 23 mmol/L (22-29); Chloride 112 mmol/L (96-108); Creatinine Clr Calc Pharmacy 80.4; Estimated Glomerular Filt Rate > 60; Glucose Random 111 mg/dL (60-115); Potassium 3.7 mmol/L (3.3-5.1); Sodium 140 mmol/L (135-145); Total Protein 5.6 g/dL (6.5-8.0)
[2024-07-12 07:14] LABS: Alkaline Phosphatase 28 U/L (39-117); Aspartate Amino Transferase 59 U/L (5-31)
[2024-07-12 07:30] LABS: Alanine Aminotransferase 52 U/L (0-31)
[2024-07-12] MEDS: 0.9 % Sodium Chloride Flush 3 ML SYRINGE IVFLUSH ×2 (08:41→16:54)
[2024-07-12] MEDS: Enoxaparin Sodium 40 MG/0.4 ML SYRINGE SUBCUT (08:42)
--- NOTE | 2024-07-12 08:46 | PHA.MEDREC ---
Pharmacy Consult ? Medication Reconciliation Pharmacy has completed the medication reconciliation. Patient said she only takes OTC acetaminophen 500 mg and ibuprofen 200 mg as needed.
[2024-07-12] MEDS: oxyCODONE HCl Immed Release 5 MG TABLET PO ×2 (09:03→17:53)
[2024-07-12] MEDS: 0.9 % Sodium Chloride 1,000 ML 100 ML IVCONT ×2 (09:06→21:11)
--- NOTE | 2024-07-12 12:33 | MHC.CM.PN ---
Addendum entered by Kaitlyn Tinajero 07/14/24 11:57: PT WILL DC HOME TODAY WITH NO SERVICES Original Note: PT REPORTS SHE LIVES WITH HER AND IS INDEPENDENT WITH CARE SHE HAS NO DME AND NO SERVICES COPY OF HCP REQUESTED PCP: MARTINEZ KERR DCP: HOME NO SERVICES VIA PRIVATE TRANSPORT
--- NOTE | 2024-07-12 15:59 | P.PNIM_ITS ---
Subjective Subjective Date of Service: 07/12/24 Interval History: Acute diverticulitis Review of Systems abd pain somewhat improving no fevers Physical Exam 2 Vital Signs: Vital Signs: Last Vital Signs Temp 97.6 F 07/12/24 08:40 Pulse 77 07/12/24 08:40 Resp 20 07/12/24 08:40 BP 116/46 L 07/12/24 08:40 Pulse Ox 98 07/12/24 08:40 O2 Del Method Room Air 07/12/24 08:40 BMI result Body Mass Index 28.5 Appearance: Alert.? Oriented X3.? cvs: rrr, [id number] . res: clear to auscultation ,no rhonchii or wheezing abd: no rebound or guarding ,has some lower abd discomfort, bs present. ext pulses present , no cyanosis . neuro: axo3 , nonfocal. Objective Data Active Medications Acetaminophen (Acetaminophen 325 Mg Tablet) 975 mg PO Q6H PRN PRN Reason: Pain, Mild (Pain Scale 1-3), fever or headache Calcium Carbonate (Calcium Carbonate 750 Mg Tab.Chew) 750 mg PO Q4H PRN PRN Reason: Heartburn Enoxaparin Sodium (Enoxaparin Sodium 40 Mg/0.4 Ml Syringe) 40 mg SUBCUT Q24H [facility] Last Admin: 07/12/24 08:42 Dose: 40 mg Documented By: RENEE Piperacillin Sod/Tazobactam (Sod 3.375 gm/ Sodium Chloride) 50 mls @ 100 mls/hr IV Q6H [facility] Last Infusion: 07/12/24 09:12 Dose: Infused Documented By: RENEE Sodium Chloride (Ns) 1,000 mls @ 100 mls/hr IVCONT .Q10H [facility] Last Admin: 07/12/24 09:06 Dose: 100 mls/hr Documented By: RENEE Magnesium Hydroxide (Milk Of Magnesia 30 Ml Oral.Susp) 30 ml PO DAILY PRN PRN Reason: Constipation Melatonin (Melatonin 3 Mg Tablet) 6 mg PO BEDTIME PRN PRN Reason: Insomnia Oxycodone HCl (Oxycodone Hcl Immed Release 5 Mg Tablet) 5 mg PO Q6H PRN PRN Reason: Pain, Severe (Pain Scale 7-10) Last Admin: 07/12/24 09:03 Dose: 5 mg Documented By: RENEE Sodium Chloride (0.9 % Sodium Chloride Flush 3 Ml Syringe) 3 ml IVFLUSH QSHIFT [facility] Last Admin: 07/12/24 08:41 Dose: 3 ml Documented By: RENEE Labs 07/12/24 06:51 07/12/24 06:51 Labs: Laboratory Results - last 24 hr 07/11/24 07/12/24 07/12/24 22:00 00:06 00:23 MCV 85.9 MCH 28.9 MCHC 33.7 RDW 13.5 Plt Count 223 MPV 10.0 Immature Gran % (Auto) 0.5 H Neut % (Auto) 79.7 H Lymph % (Auto) 13.1 L [place] % (Auto) 6.0 Eos % (Auto) 0.4 Baso % (Auto) 0.3 Lymph # (Auto) 1.7 [place] # (Auto) 0.8 Eos # (Auto) 0.1 Baso # (Auto) 0.0 Abs Immat Gran (auto) 0.07 H Absolute Neuts (auto) 10.4 H Absolute Nucleated RBC 0.000 Nucleated RBC % (auto) 0.0 Anion Gap 13 Estim Creat Clear Calc 70.7 Estimated GFR > 60 Random Glucose 113 Lactic Acid 1.3 Calcium 9.4 Magnesium 2.0 Total Bilirubin 0.5 AST 40 H ALT 36 H Alkaline Phosphatase 32 L C-Reactive Protein 7.58 H Total Protein 6.7 Albumin 4.0 Lipase 17 Urine Color Yellow Urine Appearance Cloudy Urine pH 6.0 Ur Specific [place] 1.020 Urine Protein Negative Urine Glucose (UA) Negative Urine Ketones Trace Urine Blood Negative Urine Nitrite Negative Ur Leukocyte Esterase Trace H Urine RBC 0-2 Urine WBC 6-10 H Ur Squamous Epith Cells 3-5 Urine Bacteria None Seen Hyaline Casts 0-2 07/12/24 06:51 MCV 85.8 MCH 28.7 MCHC 33.4 RDW 13.4 Plt Count 205 MPV 10.1 Immature Gran % (Auto) 0.3 Neut % (Auto) 71.9 Lymph % (Auto) 19.6 L [place] % (Auto) 7.7 Eos % (Auto) 0.3 Baso % (Auto) 0.2 Lymph # (Auto) 2.3 [place] # (Auto) 0.9 Eos # (Auto) 0.0 Baso # (Auto) 0.0 Abs Immat Gran (auto) 0.04 H Absolute Neuts (auto) 8.4 H Absolute Nucleated RBC 0.000 Nucleated RBC % (auto) 0.0 Anion Gap 9 L Estim Creat Clear Calc 80.4 Estimated GFR > 60 Random Glucose 111 Lactic Acid Calcium 8.5 D Magnesium Total Bilirubin 0.6 AST 59 H ALT 52 H Alkaline Phosphatase 28 L C-Reactive Protein Total Protein 5.6 L Albumin 3.4 L Lipase Urine Color Urine Appearance Urine pH Ur Specific [place] Urine Protein Urine Glucose (UA) Urine Ketones Urine Blood Urine Nitrite Ur Leukocyte Esterase Urine RBC Urine WBC Ur Squamous Epith Cells Urine Bacteria Hyaline Casts Assessment and Plan (1) Diverticulitis: Status: Acute Plan 63 y/o woman admitted with: Acute diverticulitis + SIRS criteria, no severe sepsis. abd pain improving ua-seems pyuria/no bacteruria blood /urine cultures pending Advance diet as tolerated. Continue empiric IV antibiotic therapy with Zosyn. IV fluids. Recheck labs in the morning. Blood culture obtained -will follow results. ?UTI. No symptoms. On Zosyn. Check urine culture. Mild elevation of transaminases; cause unclear. Abdomen pelvis CT scan showed normal liver. Continue to monitor for now. DVT prophylaxis: Lovenox. ongoing need for hospital stay-acute diverticulitis + SIRS criteria treatment with IV antibiotic. Quality Stroke Does the patient have a stroke diagnosis?: No VTE Prior VTE?: No VTE Risk Level:: Medical - moderate - high VTE Device Contraindication: Treatment Not Indicated VTE Drug Contraindication: N/A - Med Ordered
[2024-07-12 16:53] LABS: Estimated Average Glucose 108 mg/dL; Hemoglobin A1C 108.6781 umol/L; Hemoglobin A1c % 5.4 % (<6.0); Total Hemoglobin (HGBA1C) 3061.2853 umol/L
--- NOTE | 2024-07-12 19:02 | PC.NURSE ---
pt alert and oriented x4, she endorses 4/[address] Benoit aware and one time oxy put in for pain outside of order parameters. pt tolerating clear liquid diet. Pt reports some feeling of constipation and has not had bm in 3-4 days. She declined med at this time of day but states she will take in the morning. iv fluids maintained. Pt denies other complaint.
--- NOTE | 2024-07-12 22:17 | PC.NURSE ---
admission notes: pt BIBA fro LLQ pain, decreased PO intake and nausea, hx of diverticulitis. CT: acute uncomplicated diverticulitis of the medial segment of the sigmoid colon. 20g IV RAC, NS infusing at 100mls/hr. pt A/O x4, ambulates independently. calm and cooperative with care. clear liquid diet. ADMIT: acute diverticulitis, transaminitis (cause unknown) belongings list completed. transport with IVF. no sitter
[2024-07-13] VITALS (7 sets, daily range): BP systolic 91–109; BP diastolic 44–64; PULSE 60–70; RESP 12–18; TEMP 36.6–37.1; O2SAT 93–97
[2024-07-13] MEDS: Piperacillin Sodium/Tazobactam 3.375 GM in 0.9 % Sodium Chloride 50 ML IV ×4 (04:51→20:37)
[2024-07-13] MEDS: Acetaminophen 325 MG TABLET 975 MG PO (04:55)
[2024-07-13] MEDS: oxyCODONE HCl Immed Release 5 MG TABLET PO ×3 (04:56→20:42)
[2024-07-13 08:03] LABS: Alanine Aminotransferase 136 U/L (0-31); Albumin Level 3.2 g/dL (3.5-5.0); Alkaline Phosphatase 38 U/L (39-117); Anion Gap 11 (12-20); Aspartate Amino Transferase 92 U/L (5-31); Bilirubin Total 0.6 mg/dL (0.0-1.0); Blood Urea Nitrogen 7 mg/dL (9-16); Calcium 8.2 mg/dL (8.4-10.2); Carbon Dioxide 26 mmol/L (22-29); Chloride 109 mmol/L (96-108); Creatinine Clr Calc Pharmacy 78.3; Estimated Glomerular Filt Rate > 60; Glucose Random 88 mg/dL (60-115); Sodium 142 mmol/L (135-145); Total Protein 5.4 g/dL (6.5-8.0)
[2024-07-13] MEDS: Enoxaparin Sodium 40 MG/0.4 ML SYRINGE SUBCUT (08:23)
[2024-07-13] MEDS: 0.9 % Sodium Chloride 1,000 ML 100 ML IVCONT (08:23)
[2024-07-13] MEDS: ondansetron HCL 4 MG/2 ML VIAL IVPUSH (10:31)
--- NOTE | 2024-07-13 12:58 | HO.PM.IMPN ---
Subjective Subjective Date of Service: 07/13/24 Interval History: Acute diverticulitis Review of Systems abd pain seems similar no fevers boderline bp Physical Exam Vital Signs: Vital Signs: Last Vital Signs Temp 98.4 F 07/13/24 11:54 Pulse 60 07/13/24 11:54 Resp 18 07/13/24 11:54 BP 101/52 L 07/13/24 11:54 Pulse Ox 97 07/13/24 11:54 O2 Del Method Room Air 07/13/24 11:54 BMI result Body Mass Index 28.5 Appearance: Alert.? Oriented X3.? cvs: rrr, [id number] . res: clear to auscultation ,no rhonchii or wheezing abd: no rebound or guarding ,has some lower abd discomfort, bs present. ext pulses present , no cyanosis . neuro: axo3 , nonfocal. Objective Data Active Medications Acetaminophen (Acetaminophen 325 Mg Tablet) 975 mg PO Q6H PRN PRN Reason: Pain, Mild (Pain Scale 1-3), fever or headache Last Admin: 07/13/24 04:55 Dose: 975 mg Documented By: NARGIS Calcium Carbonate (Calcium Carbonate 750 Mg Tab.Chew) 750 mg PO Q4H PRN PRN Reason: Heartburn Enoxaparin Sodium (Enoxaparin Sodium 40 Mg/0.4 Ml Syringe) 40 mg SUBCUT Q24H [facility] Last Admin: 07/13/24 08:23 Dose: 40 mg Documented By: EVITA Piperacillin Sod/Tazobactam (Sod 3.375 gm/ Sodium Chloride) 50 mls @ 100 mls/hr IV Q6H [facility] Last Infusion: 07/13/24 12:39 Dose: Infused Documented By: EVITA Sodium Chloride (Ns) 1,000 mls @ 100 mls/hr IVCONT .Q10H [facility] Last Admin: 07/13/24 08:23 Dose: 100 mls/hr Documented By: EVITA Magnesium Hydroxide (Milk Of Magnesia 30 Ml Oral.Susp) 30 ml PO DAILY PRN PRN Reason: Constipation Melatonin (Melatonin 3 Mg Tablet) 6 mg PO BEDTIME PRN PRN Reason: Insomnia Ondansetron HCl (Ondansetron Hcl 4 Mg/2 Ml Vial) 4 mg IVPUSH Q6H PRN PRN Reason: Nausea and Vomiting Last Admin: 07/13/24 10:31 Dose: 4 mg Documented By: EVITA Oxycodone HCl (Oxycodone Hcl Immed Release 5 Mg Tablet) 5 mg PO Q6H PRN PRN Reason: Pain, Severe (Pain Scale 7-10) Last Admin: 07/13/24 04:56 Dose: 5 mg Documented By: NARGIS Oxycodone HCl (Oxycodone Hcl Immed Release 5 Mg Tablet) 2.5 mg PO Q6H PRN PRN Reason: Pain, Moderate(Pain Scale 4-6) Sodium Chloride (0.9 % Sodium Chloride Flush 3 Ml Syringe) 3 ml IVFLUSH QSHIFT [facility] Last Admin: 07/13/24 08:23 Dose: Not Given Documented By: EVITA Non-Admin Reason: IV Running Labs 07/12/24 06:51 07/13/24 06:05 Labs: Laboratory Results - last 24 hr 07/12/24 07/13/24 06:51 06:05 Hold Purple Top SEE NOTE Anion Gap 11 L Estim Creat Clear Calc 78.3 Estimated GFR > 60 Random Glucose 88 Estimat Average Glucose 108 Hemoglobin A1c % 5.4 Calcium 8.2 L Total Bilirubin 0.6 AST 92 H ALT 136 H Alkaline Phosphatase 38 L Total Protein 5.4 L Albumin 3.2 L Microbiology Microbiology Results: Microbiology 07/12/24 Unknown Urine Culture - Final Urine clean catch - Clean Catch Midstream No growth. 07/12/24 00:20 Blood Culture - Preliminary Blood - Venous No growth after 24 hours. 07/12/24 00:20 Blood Culture - Preliminary Blood - Venous No growth after 24 hours. Assessment and Plan (1) Diverticulitis: Status: Acute Assessment and Plan: 63 y/o woman admitted with: Acute diverticulitis + SIRS criteria, no severe sepsis. abd pain improving ua-seems pyuria/no bacteruria blood /urine cultures neg prelimiary. plan:Advance diet as tolerated. Continue empiric IV antibiotic therapy with Zosyn. IV fluids. ?UTI. No symptoms. On Zosyn. Check urine culture. Mild elevation of transaminases; cause unclear. Abdomen pelvis CT scan showed normal liver. Continue to monitor for now. DVT prophylaxis: Lovenox. ongoing need for hospital stay-acute diverticulitis + SIRS criteria treatment with IV antibiotic. Quality Stroke Does the patient have a stroke diagnosis?: No VTE Prior VTE?: No VTE Risk Level:: Medical - moderate - high VTE Device Contraindication: Treatment Not Indicated VTE Drug Contraindication: N/A - Med Ordered
[2024-07-13 14:17] LABS: Anion Gap 10 (12-20); Blood Urea Nitrogen 8 mg/dL (9-16); Calcium 8.4 mg/dL (8.4-10.2); Carbon Dioxide 25 mmol/L (22-29); Chloride 109 mmol/L (96-108); Creatinine Clr Calc Pharmacy 67.5; Estimated Glomerular Filt Rate > 60; Glucose Random 153 mg/dL (60-115); Potassium 3.6 mmol/L (3.3-5.1); Sodium 140 mmol/L (135-145)
[2024-07-14] VITALS: BP 116/55; PULSE 65; RESP 16; TEMP 36.1; O2SAT 96
[2024-07-14] MEDS: 0.9 % Sodium Chloride Flush 3 ML SYRINGE IVFLUSH (01:07)
[2024-07-14] MEDS: 0.9 % Sodium Chloride 1,000 ML 100 ML IVCONT (01:07)
[2024-07-14 03:42] VITALS: BP 120/58; PULSE 68; RESP 16; TEMP 36.5; O2SAT 96
[2024-07-14] MEDS: Piperacillin Sodium/Tazobactam 3.375 GM in 0.9 % Sodium Chloride 50 ML IV ×2 (05:35→08:23)
[2024-07-14 07:10] VITALS: BP 129/60; PULSE 65; RESP 16; TEMP 36.3; O2SAT 96
[2024-07-14 07:12] LABS: Alanine Aminotransferase 145 U/L (0-31); Albumin Level 3.1 g/dL (3.5-5.0); Alkaline Phosphatase 41 U/L (39-117); Anion Gap 7 (12-20); Aspartate Amino Transferase 79 U/L (5-31); Bilirubin Total 0.3 mg/dL (0.0-1.0); Blood Urea Nitrogen 7 mg/dL (9-16); Calcium 8.4 mg/dL (8.4-10.2); Carbon Dioxide 27 mmol/L (22-29); Chloride 111 mmol/L (96-108); Creatinine Clr Calc Pharmacy 71.6; Estimated Glomerular Filt Rate > 60; Glucose Random 94 mg/dL (60-115); Potassium 3.8 mmol/L (3.3-5.1); Sodium 141 mmol/L (135-145); Total Protein 5.4 g/dL (6.5-8.0)
[2024-07-14] MEDS: Enoxaparin Sodium 40 MG/0.4 ML SYRINGE SUBCUT (08:23)
--- NOTE | 2024-07-14 11:12 | P.DS_ITS ---
DS: Providers Provider Date of Service: 07/14/24 Date of admission: 07/12/24 03:42 Date of discharge: 07/14/24 Primary care physician: Britney House MD Attending physician on discharge: Jose Benoit Discharging clinician: Jose Benoit DS: Diagnosis Discharge Diagnosis (1) Diverticulitis: Status: Acute DS: Summary Hospital Course Hospital Course: 63 years old woman with past medical history significant for prior episode of diverticulitis presents to the emergency department complaining of left lower quadrant pain that started about 4 days ago associated with nausea. She denied events of diarrhea, constipation or vomiting. She also reports some headache and subjective fever. Denied any acute cardiopulmonary or genitourinary symptoms. Last episode of diverticulitis was about 9 months ago. She has seen surgery in the past for this. Did not report alcohol abuse, tobacco smoking or illicit drug use. Past medical history is significant for cholecystectomy. In the ED she was found to have fever of 101.6. Other vital signs are stable. Blood workup was remarkable for leukocytosis of 13.0. There is no lactic acidosis. CRP is elevated at 7.58. Hemoglobin and platelets are normal. Electrolytes are normal. Creatinine 0.83 and BUN 18. Transaminases are elevated. Bilirubin, lipase and alk-phos are unremarkable. Abdomen pelvis CT scan with IV contrast showed acute uncomplicated diverticulitis of the medial segment of the sigmoid colon. ED tx: NS 1 L bolus, acetaminophen 975 mg p.o., Zosyn 3.375 g IV Hospital course: Patient was admitted to the hospital because of left lower quadrant pain: found to have acute diverticulitis and sirs : leucocytosis ,lactic acid normal , mild elevated lft, ct abd : Acute uncomplicated diverticulitis of the middle segment of the sigmoid colon , blood cultures sent , started on iv antibiotics ,bowel rest ,ivf . patient seems to be improved with above supportive care , will switch to po augmentin 875 mg po bid x5 days. Leukocytosis improving, no fever, blood culture negative at 48 hours, patient tolerating diet. transmanitis -? chronic , similar to yesterday, acute diverticulitis might also be contributing. no abd pain ct abd shows The liver is normal in size, shape, and attenuation. No focal hepatic lesion or biliary ductal dilatation is present. Cholecystectomy clips noted. hepatitic A,B,C screen ordered and pending -discussed with patient lft's improving , repeat Lft's outpatient and hepatitis screen outapteint with pcp. plan: complete po augmentin 875 mg po bid x5 days. patient wants to follow with her pcp to decide outpatient colonoscopy and if needed diverticular surgery, she also wants to repeat Lft's outpatient and hepatitis screen and further workup with pcp. Above management discussed with her and her family at bedside, they understand and in agreement with the above plan, time spent 40 minute. Time Attestation Total time managing care of this patient today: 40 mintues. Discharge Coordination Time (in mins): 40 min Quality: Safe Use of Opioids Does Pt have an Active Cancer Diagnosis on the Problem List?: No Quality: Stroke Does the patient have a stroke diagnosis?: No Physical Exam Vital Signs: Vital Signs: Last Vital Signs Temp 97.3 F 07/14/24 07:10 Pulse 65 07/14/24 07:10 Resp 16 07/14/24 07:10 BP 129/60 07/14/24 07:10 Pulse Ox 96 07/14/24 07:10 O2 Del Method Room Air 07/14/24 07:10 BMI result Body Mass Index 28.5 Appearance: Alert.? Oriented X3.? cvs: rrr, [id number] . res: clear to auscultation ,no rhonchii or wheezing abd: no rebound or guarding ,has some lower abd discomfort, bs present. ext pulses present , no cyanosis . neuro: axo3 , nonfocal. DS: Data Data Completed and Pending Labs on day of discharge: Laboratory Results - last 24 hr 07/13/24 07/14/24 13:44 05:50 Sodium 140 141 Potassium 3.6 3.8 Chloride 109 H 111 H Carbon Dioxide 25 27 Anion Gap 10 L 7 L BUN 8 L 7 L Creatinine 0.87 0.82 Estim Creat Clear Calc 67.5 71.6 Estimated GFR > 60 > 60 Random Glucose 153 H 94 Calcium 8.4 8.4 Total Bilirubin 0.3 AST 79 H ALT 145 H Alkaline Phosphatase 41 Total Protein 5.4 L Albumin 3.1 L Preliminary micro results at discharge 07/12/24 00:20 Blood Culture - Preliminary Blood - Venous No growth after 48 hours. 07/12/24 00:20 Blood Culture - Preliminary Blood - Venous No growth after 48 hours. Imaging Chest x-ray: Radiologist's impression: ITS Impressions Abdomen/Pelvis CT 07/12/24 00:00 IMPRESSION: *Acute uncomplicated diverticulitis of the middle segment of the sigmoid colon. Marked sigmoid diverticulosis is present. Mild to moderate focal inflammatory changes are present in the middle segment of the sigmoid colon and minimal adjacent trace reactive appearing free intraperitoneal fluid is noted. No free intraperitoneal gas identified. Electronically signed by: Facundo Bowens MD 07/12/2024 02:48 AM [facility] Discharge Plan Discharge Anticipated Discharge Date/Time: 07/14/24 10:55 Patient Disposition: Home, Self-Care Discharge Diagnosis: diverticulitis ,transaminitis Referrals: Britney House MD [Primary Care Provider] - 1 Week Discharge Medications: New amoxicillin-pot clavulanate 875-125 mg Tablet 1 tab PO Q12H Qty: 10 0RF docusate sodium [Colace] 100 mg capsule 100 mg PO DAILY Qty: 30 0RF polyethylene glycol 3350 [Miralax] 17 gram/dose powder 17 g PO DAILY PRN (Reason: constipation) Qty: 119 0RF Continued ibuprofen 200 mg Tablet 600 mg PO DAILY PRN (Reason: Pain) Discontinued acetaminophen 500 mg Tablet 500 mg PO DAILY PRN (Reason: Pain) Discharge Orders: Discharge Order (Routine); Ordered 07/14/24 Ordered By: Jose Benoit Diet: Advance to usual diet Activity on Discharge: As tolerated Stand Alone Forms: Patient Portal Discharge page Print Language: Australian Other Ambulatory Orders: Liver Panel (Routine) Timeframe: 1 Week Facility: [facility] - Location: Laboratory Ordered By: Jose Benoit Care Plan Goals: Patient was admitted to the hospital because of left lower quadrant pain: found to have acute diverticulitis and sirs : leucocytosis ,lactic acid normal , mild elevated lft, ct abd : Acute uncomplicated diverticulitis of the middle segment of the sigmoid colon , blood cultures sent , started on iv antibiotics ,bowel rest ,ivf . patient seems to be improved with above supportive care , will switch to po augmentin 875 mg po bid x5 days. Leukocytosis improving, no fever, blood culture negative at 48 hours, patient tolerating diet. transmanitis -? chronic , similar to yesterday, acute diverticulitis might also be contributing. no abd pain ct abd shows The liver is normal in size, shape, and attenuation. No focal hepatic lesion or biliary ductal dilatation is present. Cholecystectomy clips noted. hepatitic A,B,C screen ordered and pending -discussed with patient lft's improving , repeat Lft's outpatient and hepatitis screen outapteint with pcp. Health Concerns: as above. Plan of Treatment: complete po augmentin 875 mg po bid x5 days. patient wants to follow with her pcp to decide outpatient colonoscopy and if needed diverticular surgery. repeat Lft's outpatient and hepatitis screen outapteint with pcp. Assessment: as above. Discharge Date/Time: 07/14/24 13:56
[2024-07-14] MEDS: Amoxicillin/Potassium Clav 875 MG TABLET PO (11:24)
[2024-07-14 11:52] VITALS: BP 119/63; PULSE 69; RESP 20; TEMP 36.1; O2SAT 98
[2024-07-14] MEDS: Milk of Magnesia 30 ML ORAL.SUSP PO (13:51)
[2024-07-14 14:23] LABS: HBS Num1 0.47 mIU/mL (0-7.99); HBc Num1 0.13 S/CO (0.00-0.79); HBsAGNum1 0.32 S/CO (0.00-0.99); Hepatitis B Core Antibody Nonreactive (Nonreactive); Hepatitis B Surface Antigen Negative (Negative); ~HepC Num1 0.13 S/CO (0.00-0.79); ~Hepatitis A Antibody IgM Nonreactive (Nonreactive); ~Hepatitis B Surface Antibody NONREACTIVE (Nonreactive); ~Hepatitis C Antibody Nonreactive (Nonreactive)
== END 2024-07-14 13:56 | disposition home or self-care (01) | DRG 244 ==
LOC: HO.ED 07-12 03:03 → HO.EDOVER 07-12 03:49 → HO.S3 07-13 00:44
PROVIDERS: Physician Assistant; Admitting Provider Internal Medicine; Emergency Provider Internal Medicine; PCP Internal Medicine; Visit Provider Internal Medicine
DX: K57.32 Diverticulitis of large intestine without perforation or abscess without bleeding (principal); R74.01 Elevation of levels of liver transaminase levels
CPT/HCPCS: 36415; 74177; 80048; 80053; 81001; 83036; 83605; 83690; 83735; 85025; 86140; 86704; 86706; 86709; 86803; 87040; 87086; 87340; 97161; 99285; J1650; J2270; J2405; J2543; J7120; Q9967

== ENCOUNTER → 2024-07-12 03:42 | Outpatient (BNV) | payer OTHER, SELFPAY | PROVIDERS: Admitting Provider Internal Medicine; Emergency Provider Internal Medicine; PCP Internal Medicine; Visit Provider Internal Medicine | DX: R74.01 Elevation of levels of liver transaminase levels (principal); K57.92 Diverticulitis of intestine, part unspecified, without perforation or abscess without bleeding | CPT/HCPCS: 99223; 99232; 99239; 99499 ==

== ENCOUNTER 2024-11-11 18:26 | Emergency (ER) | payer OTHER, SELFPAY ==
--- NOTE | ~2024-11-11 | CT_ITS ---
CLINICAL HISTORY: LLQ pain CT abdomen and pelvis with contrast Comparison: CT/SR - CT ABDOMEN PELVIS W IV CON - 07/12/24 00:31 EST Findings: The lung bases are clear. Spleen, adrenal glands, pancreas, kidneys and liver are unremarkable. No bowel obstruction, pneumoperitoneum, or pneumatosis. Appendix not visualized, cecum is in the right upper quadrant. Appendix may be surgically absent. There are scattered colonic diverticula, however no evidence of diverticulitis. There are 2 unchanged small fat containing left posterior diaphragmatic hernias. Pelvic contents unremarkable. The bones are intact. Mild degenerative changes of the lower lumbar spine. IMPRESSION: No acute findings. Fat containing left posterior diaphragmatic hernias. This document has been electronically signed by: Armando Felder MD on 11/11/2024 22:07:41
[2024-11-11 18:42] VITALS: BP 154/77; PULSE 84; O2SAT 100
[2024-11-11 18:48] VITALS: BP 134/53; PULSE 69; RESP 16; TEMP 36.7; O2SAT 100; BMI 30.2
[2024-11-11] MEDS: Morphine Sulfate 4 MG/ML CARTRIDGE IVPUSH (19:11)
[2024-11-11] MEDS: 0.9 % Sodium Chloride 1,000 ML 999 ML IV (19:11)
[2024-11-11 19:27] LABS: MANUAL DIFF FLAG NO
[2024-11-11 19:38] LABS: Basophils Absolute Auto 0.1 X10*3/uL (0.0-0.2); Basophils Percent Auto 0.7 % (0-2); Eosinophils Absolute Auto 0.1 X10*3/uL (0.0-0.4); Eosinophils Percent Auto 1.8 % (0-4); Hematocrit 38.8 % (37.0-47.0); Hemoglobin 12.8 g/dl (12.0-16.0); Imm Gran Abs Auto 0.03 X10*3/uL (0.00-0.03); Imm Gran Pct Auto 0.4 % (0.0-0.4); Lymphocytes Absolute Auto 1.6 X10*3/uL (1.2-4.9); Mean Corpuscular Hemoglobin 28.3 pg (27.0-33.0); Mean Corpuscular Volume 85.8 fL (80.0-98.0); Mean Platelet Volume 10.7 fL (9.4-12.3); Monocytes Absolute Auto 0.4 X10*3/uL (0.1-1.2); Monocytes Percent Auto 5.8 % (2-11); Neutrophils Absolute Auto 4.8 x10*3/uL (2.0-8.3); Neutrophils Percent Auto 68.3 % (45-73); Platelet Count 247 X10*3/uL (160-400); Red Blood Count 4.52 X10*6/uL (4.20-5.50); White Blood Count 7.1 X10*3/uL (4.8-10.8)
[2024-11-11 20:59] LABS: Alanine Aminotransferase 11 U/L (0-31); Albumin Level 3.6 g/dL (3.5-5.0); Alkaline Phosphatase 23 U/L (39-117); Anion Gap 10 (12-20); Aspartate Amino Transferase 21 U/L (5-31); Bilirubin Total 0.4 mg/dL (0.0-1.0); Blood Urea Nitrogen 12 mg/dL (9-16); Calcium 8.8 mg/dL (8.4-10.2); Carbon Dioxide 24 mmol/L (22-29); Chloride 111 mmol/L (96-108); Creatinine Clr Calc Pharmacy 69.9; Estimated Glomerular Filt Rate > 60; Glucose Random 104 mg/dL (60-115); Magnesium 1.8 mg/dL (1.6-2.6); Potassium 4.2 mmol/L (3.3-5.1); Sodium 141 mmol/L (135-145); Total Protein 5.8 g/dL (6.5-8.0)
[2024-11-11] MEDS: iohexoL 350 MG/ML 100 ML INFUS..BTL 85 ML IV (21:15)
--- NOTE | 2024-11-11 22:28 | ED.GENADULT ---
HPI - General Adult General Chief complaint: Weakness Stated complaint: dizzy , n/v sob tingly hands r side tingly Time Seen by Provider: 11/11/24 18:39 Source: patient Limitations: no limitations History of Present Illness ED Provider: Pamela Monique PA-C HPI narrative: 64-year-old female presents with multiple complaints. Patient states she has been having lower abdominal discomfort over the past few days. Pain over left lower abdomen, is nonradiating, unable to describe the nature of her discomfort. Associated weakness, dizziness and palpitations. Denies nausea, vomiting or diarrhea, no fever. Patient states she was out at a store today, and she felt as if she was going to ?pass out?. Related Data Home Medications ?Medication ?Instructions ?Recorded ?Confirmed ibuprofen 200 mg tablet 600 mg PO DAILY PRN Pain 07/12/24 07/12/24 Previous Rx's ?Medication ?Instructions ?Recorded amoxicillin 875 mg-potassium 1 tab PO Q12H #10 tabs 07/14/24 clavulanate 125 mg tablet docusate sodium 100 mg capsule 100 mg PO DAILY constipation #30 07/14/24 (Colace) caps polyethylene glycol 3350 17 17 g PO DAILY PRN constipation 07/14/24 gram/dose oral powder (Miralax) #119 grams Allergies Allergy/AdvReac Type Severity Reaction Status Date / Time No Known Allergies Allergy Verified 11/11/24 18:55 [No Known Allergies*] Review of Systems Review of Systems: Yes all other systems are reviewed and are negative Constitutional: Constitutional: Reports fatigue, Denies fever(s), Denies headache(s) and Reports malaise ENT: Reports dizziness and Denies headache(s) Cardiovascular: Cardiovascular: Denies chest pain and Reports syncope Gastrointestinal: Gastrointestinal: Reports abdominal pain, Denies constipation, Denies diarrhea, Denies nausea and Denies vomiting Neurologic: Reports dizziness, Reports syncope and Denies headache(s) Endocrine: Endocrine: Reports fatigue PMFSH Past Medical History Attestation statement: The following information was validated with the patient. Medical History (Updated 11/13/24 @ 00:01 by Background Daemon) Diverticulitis Social History Social History Household Members: Spouse Housing: House Do you presently have visiting nurse or other home services: No Alcohol intake: never Patient Tobacco Use Status: Never used Tobacco e-Cigarette/Vaping Use: Never Used Second Hand Smoke Exposure: No service: No Physical Exam ED Vital Signs: Vital Signs - 24 hr 11/11/24 18:48 11/11/24 22:54 Temperature 98.1 F 97.6 F Pulse Rate 69 73 Respiratory Rate 16 20 Blood Pressure 134/53 L 121/67 Pulse Oximetry 100 97 Oxygen Delivery Method Room Air Room Air BMI result Body Mass Index 30.2 Const Other: Alert well-appearing Orientation/consciousness: patient oriented x3 Resp Effort & Inspection: normal respiratory effort Cardio Other: Normal peripheral perfusion GI Other: Abdomen is soft, nondistended, mild to moderate tenderness left lower quadrant with mild involuntary guarding Skin Other: Warm dry no rash Neuro General: patient oriented x3, gait normal, no focal motor deficits and CN's II-XI intact bilaterally Psych Other: Cooperative Medications Administered Discontinued Medications Generic Name Dose Route Start Last Admin Trade Name Freq PRN Reason Stop Dose Admin Sodium Chloride 1,000 mls @ 999 mls/hr 11/11/24 19:00 11/11/24 19:11 Ns IV 11/11/24 20:00 999 mls/hr .Q1H1M RUBIA Administration Iohexol 85 ml 11/11/24 21:14 11/11/24 21:15 Iohexol 350 Mg/Ml 100 Ml Infus..Btl IV 11/11/24 21:15 85 ml ONCE ONE Administration Morphine Sulfate 4 mg 11/11/24 18:50 11/11/24 19:11 Morphine Sulfate 4 Mg/Ml Cartridge IVPUSH 11/11/24 18:51 4 mg ONCE ONE Administration Protocol Medical Decision Making Medical Decision Making MDM Narrative: 64-year-old female with a history of diverticulitis presents with multiple complaints. Patient states she has been having lower abdominal discomfort over the past few days. Pain over left lower abdomen, is nonradiating, unable to describe the nature of her discomfort. Associated weakness, dizziness and palpitations. Denies nausea, vomiting or diarrhea, no fever. Patient states she was out at a store today, and she felt as if she was going to ?pass out?. Problem: Diverticulitis History: Per patient I have considered the following differential diagnoses: Vasovagal syncope, viral syndrome, diverticulitis Plan: We will be obtaining screening labs and a CT of the abdomen, given distribution of discomfort this could be diverticulitis. Sounds as if she has had preceding viral related symptoms as well, could be viral gastro. In regard to her lightheadedness, sounds as if she was having vasovagal near-syncope in the setting of discomfort. We will be giving fluids and pain meds Labs: No leukocytosis, not anemic, no electrolyte abnormality noted CT abd: Findings: The lung bases are clear. Spleen, adrenal glands, pancreas, kidneys and liver are unremarkable. No bowel obstruction, pneumoperitoneum, or pneumatosis. Appendix not visualized, cecum is in the right upper quadrant. Appendix may be surgically absent. There are scattered colonic diverticula, however no evidence of diverticulitis. There are 2 unchanged small fat containing left posterior diaphragmatic hernias. Pelvic contents unremarkable. The bones are intact. Mild degenerative changes of the lower lumbar spine. IMPRESSION: No acute findings. Fat containing left posterior diaphragmatic hernias. This document has been electronically signed by: Armando Felder MD on 11/11/2024 22:07:41 Lab Data 11/11/24 19:22 11/11/24 20:38 Labs: Lab Results 11/11/24 11/11/24 Range/Units 19:22 20:38 WBC 7.1 (4.8-10.8) X10*3/uL RBC 4.52 (4.20-5.50) X10*6/uL Hgb 12.8 (12.0-16.0) g/dl Hct 38.8 (37.0-47.0) % MCV 85.8 (80.0-98.0) fL MCH 28.3 (27.0-33.0) pg MCHC 33.0 (31.0-35.0) g/dl RDW 14.0 (11.0-16.0) % Plt Count 247 (160-400) X10*3/uL MPV 10.7 (9.4-12.3) fL Immature Gran % (Auto) 0.4 (0.0-0.4) % Neut % (Auto) 68.3 (45-73) % Lymph % (Auto) 23.0 (20-40) % [place] % (Auto) 5.8 (2-11) % Eos % (Auto) 1.8 (0-4) % Baso % (Auto) 0.7 (0-2) % Lymph # (Auto) 1.6 (1.2-4.9) X10*3/uL [place] # (Auto) 0.4 (0.1-1.2) X10*3/uL Eos # (Auto) 0.1 (0.0-0.4) X10*3/uL Baso # (Auto) 0.1 (0.0-0.2) X10*3/uL Abs Immat Gran (auto) 0.03 (0.00-0.03) X10*3/uL Absolute Neuts (auto) 4.8 (2.0-8.3) x10*3/uL Absolute Nucleated RBC 0.000 (0.0-0.012) X10*3/uL Nucleated RBC % (auto) 0.0 (0.0-0.2) /100WBC Sodium 141 (135-145) mmol/L Potassium 4.2 (3.3-5.1) mmol/L Chloride 111 H (96-108) mmol/L Carbon Dioxide 24 (22-29) mmol/L Anion Gap 10 L (12-20) BUN 12 (9-16) mg/dL Creatinine 0.76 (0.5-1.4) mg/dL Estim Creat Clear Calc 69.9 Estimated GFR > 60 Random Glucose 104 (60-115) mg/dL Calcium 8.8 (8.4-10.2) mg/dL Magnesium 1.8 (1.6-2.6) mg/dL Total Bilirubin 0.4 (0.0-1.0) mg/dL AST 21 (5-31) U/L ALT 11 (0-31) U/L Alkaline Phosphatase 23 L (39-117) U/L Total Protein 5.8 L (6.5-8.0) g/dL Albumin 3.6 (3.5-5.0) g/dL Discharge Plan Discharge Clinical Impression: Constipation Patient Disposition: Home, Self-Care Instructions: Constipation (ED) Additional Instructions: CT scan of the abdomen revealed no diverticulitis or other acute infection, you were found to be constipated. See home care instructions. I would use Colace, this is a stool softener, twice a day. Instead of the lactulose, I would use MiraLax, 3 to 4 times a day until you alleviate your current stool burden. Follow up with your primary care provider as needed. Prescriptions: No Action ibuprofen 200 mg Tablet 600 mg PO DAILY PRN (Reason: Pain) amoxicillin-pot clavulanate 875-125 mg Tablet 1 tab PO Q12H Qty: 10 0RF docusate sodium [Colace] 100 mg capsule 100 mg PO DAILY Qty: 30 0RF polyethylene glycol 3350 [Miralax] 17 gram/dose powder 17 g PO DAILY PRN (Reason: constipation) Qty: 119 0RF Interventions: ED Discharge Assessment Last Done: 11/12/24 00:38 Discharge Date/Time: 11/12/24 00:38 Print Language: Bulgarian
[2024-11-11 22:54] VITALS: BP 121/67; PULSE 73; RESP 20; TEMP 36.4; O2SAT 97
[2024-11-12 00:38] VITALS: BP 102/62; PULSE 76; RESP 16; TEMP 36.6; O2SAT 97
== END 2024-11-12 00:38 | disposition home or self-care (01) ==
PROVIDERS: Physician Assistant Medical; Emergency Provider Emergency Medicine; PCP Internal Medicine
DX: K59.00 Constipation, unspecified (principal); R42 Dizziness and giddiness; R11.2 Nausea with vomiting, unspecified; Z79.899 Other long term (current) drug therapy
CPT/HCPCS: 36415; 74177; 80053; 83735; 85025; 96374; 99284; J2270; Q9967

== ENCOUNTER → 2024-11-11 21:21 | Outpatient (BNV) | payer OTHER, SELFPAY | PROVIDERS: Emergency Provider Emergency Medicine; PCP Internal Medicine; Visit Provider Radiology Diagnostic Radiology | DX: R10.32 Left lower quadrant pain (principal) | CPT/HCPCS: 74177 ==